=== PATIENT | female | born 1985 ===

== ENCOUNTER 2020-12-11 11:20 | Outpatient (CLI) | payer OTHER ==
[2020-12-11 18:59] LABS: MUDS CUTOFF CONCENTRATIONS CUTOFF CONC BELOW:
[2020-12-11 19:06] LABS: BILIRUBIN,URINE NEGATIVE (NEGATIVE); GLUCOSE, URINE (UA) NEGATIVE (NEGATIVE); KETONES,URINE (UA) NEGATIVE (NEGATIVE); LEUKOCYTE ESTERASE, URINE NEGATIVE (NEGATIVE); NITRITE,URINE NEGATIVE (NEGATIVE); OCCULT BLOOD,URINE NEGATIVE (NEGATIVE); PH,URINE 6.5 PH (5.0-7.5); PROTEIN,URINE NEGATIVE (NEGATIVE); UROBILINOGEN,URINE 0.2 (NORMAL) E.U./dL (NORMAL)
[2020-12-11 19:17] LABS: CLARITY,URINE CLEAR (CLEAR)
[2020-12-11 19:18] LABS: AMPHETAMINE SCREEN,URINE NEGATIVE (NEGATIVE); BARBITURATE SCREEN,UR NEGATIVE (NEGATIVE); BENZODIAZEPINES SCREEN, URINE NEGATIVE (NEGATIVE); COCAINE SCREEN URINE NEGATIVE (NEGATIVE); METHADONE SCREEN, URINE NEGATIVE (NEGATIVE); METHAMPHETAMINES SCREEN, URINE NEGATIVE (NEGATIVE); OPIATE SCREEN, URINE NEGATIVE (NEGATIVE); OXYCODONE SCREEN, URINE NEGATIVE (NEGATIVE); PROPOXYPHENE SCREEN, URINE NEGATIVE (NEGATIVE); THC CANNABINOID SCREEN, URINE NEGATIVE (NEGATIVE); TRICYCLIC ANTIDEPRESSANT,URINE NEGATIVE (NEGATIVE)
[2020-12-11 19:21] LABS: BACTERIA,URINE Rare /HPF (None Seen); RBC,URINE None Seen /HPF (0-5); SQUAMOUS EPITHELIAL CELL,UR RARE Squamous (<= Few); WBC,URINE 0-3 /HPF (0-5)
== END 2020-12-11 23:59 | disposition home or self-care (01) ==
LOC: LAB.R 11:20
PROVIDERS: ATTEND Advanced Practice Midwife
DX: Z34.90 Encounter for supervision of normal pregnancy, unspecified, unspecified trimester (principal)
CPT/HCPCS: 80306; 81001; 87086

== ENCOUNTER 2020-12-22 19:00 | Outpatient (CLI) | payer OTHER ==
--- NOTE | 2020-12-22 20:36 | Ultrasound Report ---
PROCEDURE: OB First Trimester w/TV INDICATIONS: SUPERVISION OF NORMAL OUTSIDE/PRIOR DATING DATA: Last menstrual period (LMP): 10/13/2020. LMP-based estimated date of delivery (CARITO): 07/20/2021. First dating scan (date and location): 12/22/2020. Estimated date of delivery (CARITO) from first dating scan: 07/22/2021. TECHNIQUE: Real-time scanning was performed of the fetus and maternal pelvic organs, with image documentation. Endovaginal scanning was also performed to better visualize the fetus and maternal ovaries. COMPARISON: None FINDINGS: Embryo: Single live area of presumed crown-rump length measuring 2.9 cm corresponding to 9 weeks 5 d ays. heart rate is identified at 181 bpm. Measurement variability in dating: +/- 4 weeks by LMP, +/- 7 days by mean sac diameter (use before 6 weeks gestation if crown-rump length not able to be measured), +/- 5 days by crown-rump length (6-12 weeks gestation). Maternal organs: Ovaries demonstrate a left ovarian cyst measuring 1.4 x 1.8 x 1.6 cm. In addition, a uterine fibroid is identified posteriorly measuring 3.4 x 2.9 x 2.4 cm.. IMPRESSION: 1. Single live intrauterine corresponding to 9 weeks 5 days. 2. Posterior uterine fibroid. 3. Recommend follow-up imaging at 20-22 weeks for dates and anatomy. Reviewed by: Yanet Clay MD on 12/22/2020 8:35 PM PST Approved by: Yanet Clay MD on 12/22/2020 8:35 PM PST Station ID: [id number]
== END 2020-12-22 19:01 | disposition home or self-care (01) ==
LOC: DI 19:00
PROVIDERS: ATTEND Advanced Practice Midwife
DX: O34.11 Maternal care for benign tumor of corpus uteri, first trimester (principal); Z3A.09 9 weeks gestation of pregnancy

== ENCOUNTER 2021-01-24 11:11 | Outpatient (CLI) | payer OTHER ==
[2021-01-24 11:41] LABS: BASOPHILS % (AUTO) 0.3 %; EOSINOPHILS # (AUTO) 0.1 10^3/uL (0.0-0.7); EOSINOPHILS % (AUTO) 1.3 %; HCT - HEMATOCRIT 33.1 % (37.0-47.0); HGB - HEMOGLOBIN 11.4 g/dL (12.0-16.0); LYMPHOCYTES # (AUTO) 1.6 10^3/uL (1.5-3.5); LYMPHOCYTES % (AUTO) 21.9 %; MEAN CORPUSCULAR HEMOGLOBIN 31.1 pg (27.0-31.0); MEAN CORPUSCULAR HGB CONC 34.4 g/dL (32.0-36.0); MEAN CORPUSCULAR VOLUME 90.4 fL (81.0-99.0); MEAN PLATELET VOLUME 9.5 fL (7.9-10.8); MONOCYTES # (AUTO) 0.4 10^3/uL (0.0-1.0); MONOCYTES % (AUTO) 5.7 %; NEUTROPHILS # (AUTO) 5.1 10^3/uL (1.5-6.6); NEUTROPHILS % (AUTO) 70.5 %; PLT - PLATELET COUNT 261 10^3/uL (130-450); RED BLOOD COUNT 3.66 10^6/uL (4.20-5.40); RED CELL DISTRIBUTION WIDTH 12.4 % (12.0-15.0); WHITE BLOOD COUNT 7.2 x10^3/uL (4.8-10.8)
[2021-01-24 11:56] LABS: ALBUMIN 3.5 g/dL (3.2-5.5); ALBUMIN/GLOBULIN RATIO 1.1 (1.0-2.2); BILIRUBIN,TOTAL 0.3 mg/dL (0.2-1.0); CALCIUM 9.1 mg/dL (8.5-10.3); CREATININE 0.4 mg/dL (0.4-1.0); POTASSIUM 3.6 mmol/L (3.5-5.0); TOTAL PROTEIN 6.7 g/dL (6.7-8.2)
[2021-01-25 12:16] LABS: HEPATITIS B SURFACE ANTIGEN NON-REACTIVE (NON-REACTIVE)
[2021-01-25 12:36] LABS: HIV AG/AB 4TH GEN NON-REACTIVE (NON-REACTIVE)
[2021-01-25 13:22] LABS: HEPATITIS C ANTIBODY NON-REACTIVE (NON-REACTIVE)
== END 2021-01-24 11:12 | disposition home or self-care (01) ==
LOC: LAB 11:11
PROVIDERS: ATTEND Nurse Practitioner Obstetrics & Gynecology
DX: O09.529 Supervision of elderly multigravida, unspecified trimester (principal); Z87.59 Personal history of other complications of pregnancy, childbirth and the puerperium; Z36.89 Encounter for other specified antenatal screening
CPT/HCPCS: 36415; 80053; 85025; 85027; 86592; 86762; 86787; 86803; 86850; 86900; 86901; 87340; 87389

== ENCOUNTER 2021-03-02 13:29 | Outpatient (CLI) | payer OTHER ==
--- NOTE | 2021-03-02 17:25 | Ultrasound Report ---
PROCEDURE: OB Detailed Eval INDICATIONS: SUPERVISION OF HIGH RISK OUTSIDE/PRIOR DATING DATA: Last menstrual period (LMP): 10/13/2020. LMP-based estimated date of delivery (CARITO): 07/20/2021. First dating scan (date and location): 12/22/2020. Estimated date of delivery (CARITO) from first dating scan: 07/22/2021. The below data below was generated using the CARITO of 07/22/2021 TECHNIQUE: Real-time scanning was performed of the fetus, with image documentation and biometric measurements. Endovaginal scanning: No COMPARISON: Prior OB ultrasound dated 12/22/2020 FINDINGS: General: A single living intrauterine gestation is present. Presentation: Reached Placenta: Placental position is posterior, without previa. Amniotic fluid index: 14.1 cm, normal for gestational age. heart rate: 130s beats per minute. Maternal cervical canal: 6.1 cm long; normal length is 2.5 cm or more. biometrics: Biparietal diameter: 19 weeks 5 Head circumference: 19 weeks 2 days Abdominal circumference: 20 weeks 1 day Femur length: 19 weeks 4 days Estimated gestational age from initial scan: 19 weeks 5 days Composite gestational age from present scan: 19 weeks 6 days Estimated weight and percentile: 313 g; 50th percentile Measurement variability in biometric dating: +/- 10 days from 12-20 weeks gestation, +/- 2 weeks from 20-30 weeks gestation, +/- 3 weeks at 30 weeks gestation or later. Anatomic survey: Neuro: Ventricles are normal at less than 10 mm. Cisterna magna is normal at 3-11 mm. Cerebellum i s normal in size and morphology. Nuchal skin fold: Normal at less than 6 mm between 14 and 20 weeks gestational age. Face: Nose and lips, facial profile are normal. Spine: No evidence for spina bifida. Heart: 4-chambered heart is present, with normal ventricular outflow tracts. Diaphragm: Diaphragm is intact. Stomach: Left-sided stomach is present. Kidneys: No hydronephrosis. Normal is less than 5 mm in 2nd trimester, less than 7 mm in 3rd trimester. Cord: 3 vessel cord has orthotopic insertion. Bladder: Normal in size. Extremities: All 4 extremities are visualized. IMPRESSION: 1. Single living IUP redemonstrated and interval growth is normal with estimated weight at the 50th percentile for age. 2. Normal anatomic survey. Reviewed by: MP Pearson on 03/02/2021 5:24 PM PDT Approved by: Yanet Clay MD on 03/02/2021 5:24 PM PDT Station ID: [id number]
== END 2021-03-02 13:30 | disposition home or self-care (01) ==
LOC: DI 13:29
PROVIDERS: ATTEND Advanced Practice Midwife
DX: O09.899 Supervision of other high risk pregnancies, unspecified trimester (principal); O09.529 Supervision of elderly multigravida, unspecified trimester; Z3A.19 19 weeks gestation of pregnancy

== ENCOUNTER 2021-05-01 13:17 | Outpatient (CLI) | payer OTHER ==
[2021-05-01 18:41] LABS: HCT - HEMATOCRIT 29.4 % (37.0-47.0); HGB - HEMOGLOBIN 9.7 g/dL (12.0-16.0); MEAN CORPUSCULAR HEMOGLOBIN 31.8 pg (27.0-31.0); MEAN CORPUSCULAR VOLUME 96.4 fL (81.0-99.0); MEAN PLATELET VOLUME 9.5 fL (7.9-10.8); RED BLOOD COUNT 3.05 10^6/uL (4.20-5.40); RED CELL DISTRIBUTION WIDTH 12.5 % (12.0-15.0); WHITE BLOOD COUNT 9.1 x10^3/uL (4.8-10.8)
== END 2021-05-01 23:59 | disposition home or self-care (01) ==
LOC: LAB.WCP 13:17
PROVIDERS: ATTEND Obstetrics & Gynecology
DX: O09.899 Supervision of other high risk pregnancies, unspecified trimester (principal)
CPT/HCPCS: 36415; 82950; 85027

== ENCOUNTER 2021-05-04 07:17 | Outpatient (CLI) | payer OTHER | END 2021-05-04 07:18 | disposition home or self-care (01) | LOC: LAB 07:17 | PROVIDERS: ATTEND Obstetrics & Gynecology | DX: O99.019 Anemia complicating pregnancy, unspecified trimester (principal); O99.810 Abnormal glucose complicating pregnancy; Z53.9 Procedure and treatment not carried out, unspecified reason ==

== ENCOUNTER 2021-05-07 07:08 | Outpatient (CLI) | payer OTHER ==
[2021-05-07 07:47] LABS: GTT GLUCOSE,FASTING 93 mg/dL (70-100)
[2021-05-07 08:09] LABS: % IRON SATURATION 13 % (20-50); IRON 67 ug/dL (28-170); TOTAL IRON BINDING CAPACITY 526 ug/dL (250-450); TRANSFERRIN 376 mg/dL (192-382)
== END 2021-05-07 07:09 | disposition home or self-care (01) ==
LOC: LAB 07:08
PROVIDERS: ATTEND Obstetrics & Gynecology
DX: O99.019 Anemia complicating pregnancy, unspecified trimester (principal); O99.810 Abnormal glucose complicating pregnancy
CPT/HCPCS: 36415; 81599; 82728; 82951; 82952; 83020; 83540; 84466; 85014; 85018; 85041

== ENCOUNTER 2021-06-27 08:00 | Outpatient (CLI) | payer OTHER | END 2021-06-27 23:59 | disposition home or self-care (01) | LOC: LAB.WC 08:00 | PROVIDERS: ATTEND Obstetrics & Gynecology | DX: O09.899 Supervision of other high risk pregnancies, unspecified trimester (principal); Z36.85 Encounter for antenatal screening for Streptococcus B | CPT/HCPCS: 87797 ==

== ENCOUNTER 2021-07-08 15:45 | Inpatient (IN) | payer OTHER ==
[2021-07-08] MEDS ORDERED: ONDANSETRON 4 MG/2 ML VIAL IVP PRN (16:38)
[2021-07-08] MEDS ORDERED: OXYTOCIN/SODIUM CHLORIDE 500 ML IV PRN (16:38)
[2021-07-08] MEDS ORDERED: OXYTOCIN 10 UNIT/ML VIAL IM PRN (16:38)
[2021-07-08] MEDS ORDERED: TERBUTALINE 1 MG/ML VIAL SUBQ PRN (16:38)
[2021-07-08] MEDS ORDERED: NIFEdipine 10 MG CAPSULE PO PRN (16:38)
[2021-07-08] MEDS ORDERED: miSOPROStoL 200 MCG TABLET BC PRN (16:38)
[2021-07-08] MEDS ORDERED: ACETAMINOPHEN 325 MG TABLET PO PRN (16:38)
[2021-07-08] MEDS ORDERED: CARBOPROST TROMETHAMINE 250 MCG/ML AMP IM PRN (16:38)
[2021-07-08] MEDS ORDERED: TRANEXAMIC ACID IN NACL 1,000 MG/100 ML BAG IV PRN (16:38)
[2021-07-08] MEDS ORDERED: METHYLERGONOVINE 0.2 MG/ML VIAL IM PRN (16:38)
[2021-07-08] MEDS ORDERED: LIDOCAINE-MPF 1% 30 ML VIAL ID PRN (16:38)
[2021-07-08] MEDS ORDERED: LABETALOL 20 MG/4 ML SYRINGE IVP PRN ×3 (16:38)
[2021-07-08] MEDS ORDERED: hydrALAZINE INJ 20 MG/ML VIAL IVP PRN ×2 (16:38)
[2021-07-08] MEDS ORDERED: SODIUM CHLORIDE FLUSH 0.9% 10 ML SYRINGE IVP PRN (16:38)
[2021-07-08] MEDS ORDERED: METOCLOPRAMIDE 10 MG/2 ML VIAL IVP PRN (16:38)
[2021-07-08] MEDS ORDERED: fentaNYL 100 MCG/2 ML VIAL IVP PRN (16:38)
--- NOTE | 2021-07-08 16:46 | HISTORY & PHYSICAL EXAMINATION ---
Admit History - Visit Reason Visit Reason: Membranes rupture - : 2 Parity: 1 Risk/History: positive: Other Smoking Status: Never smoker - Mother's Labs Mother's Blood Type: positive: O Mother's RH: positive: Positive GBS: positive: Group B Step Negative Rubella Status: positive: Non-immune, Immune - Other Maternal History Other Maternal History: ID: Patient is a 35 yo at 38+1 wga who presents with spontaneous rupture of membranes. HPI: Patient reports she has some passage of bloody fluid. She is home alone with her 4 year old and called and ambulance. Upon arrival of the ambulance, she started passing large volumes of clear fluid per vagina. She is not yet feeling contractions. Endorses movement. No rowdy VB. GBS negative. Hx of pre-eclampsia in prior . Has had normal blood pressures on ASA this . PNC: LMP: 10/13/2020 CARITO by LMP: 07/20/2021 Initial US: at 9.3wks c/w LMP. (CARITO by U/S 07/22/2021). Left ovarian cyst measuring 1.8cm. Posterior uterine fibroid 3.4cm. FINAL CARITO: 07/20/2021 Vertex by BSUS O pos/Rubella NON-IMMUNE VZV:immune Genetic testing: Quad screen ordered 01/24/2021- not completed by patient. Declines carrier screening. Declines MFM referral for AMA. FAS:WNL Posterior placenta. EFW 313g 50th%ile, 3VC, Normal TRINA. No mention of uterine fibroid from intitial US. follow up for fibroid Glucola ordered- 1HR 167 3HR 93 175, 154, 132. Reviewed limitation of carbohydrates Influenza: declined TDAP- 05/10/2021 Covid vacc: wants to wait until GBS 06/27 Negative HSV: denies in self and partner Breast pump Rx 05/10/21- obtained MOD: Anticipate ; Daugther Leeanna (4), Partner Efrain is active duty; desires unmedicated delivery; (struggled with first) Boy(she guessed it!) No name yet. pp contraception: undecided pap: 01/10/2021. ASCUS, HPV neg PMH: Pre-eclampsia PSH: none SOC HX: Race: or Other Marital status: Occupation: homemaker Education (last grade completed): High school Number of children at home: 1 FOB Information /Father of baby: Efrain FOB occupation [employer] FOB Comments: Depolying December 2020 FH: PGF with DM and HTN ROS: As per HPI, otherwise remaining systems are negative. PE: VS: 121/81 103 100% GEN: NAD HEENT: NCAT CV: RR RESP: normal effort ABD: gravid, S&NT/ND EXT: WWP, no LE edema PSYCH: appropriate affect NEURO: A&O SVE: high and posterior, soft. Patient is unable to tolerate complete exam. head is high and not applied to cervix. Gross rupture of fluid. EFM 140 mod priscila 15x15 accels no decels TOCO: Q6-8, mild Vertex by BSUS A/P: 35 yo at 38+2 wga with gross rupture of membranes SROM/PROM: Gross rupture with intermittent and mild contractions -Concerned regarding high station and ruptured membranes; will start pitocin GLENDA to advance station -Minimize cervical exams as much as possible FWB: Vertex, Cat I tracing, GBS neg, well grown -CEFM PAIN: Desires unmedicated delivery -Ok for epidural per desire -Fentanyl can be given but not in combination with nitrous oxide, not after 7 cm dilation, and not to exceed 200 mcg cumulative dose -Nitrous oxide as desired. Anticipate Physical - Abdominal Exam Vital Signs: Temp Pulse Resp BP Pulse Ox 97.9 F 103 H 17 121/81 H 100 07/08/21 16:28 07/08/21 16:28 07/08/21 16:28 07/08/21 16:28 07/08/21 16:15
[2021-07-08 16:48] LABS: BASOPHILS % (AUTO) 0.3 %; EOSINOPHILS # (AUTO) 0.1 10^3/uL (0.0-0.7); HCT - HEMATOCRIT 33.5 % (37.0-47.0); HGB - HEMOGLOBIN 11.7 g/dL (12.0-16.0); LYMPHOCYTES # (AUTO) 1.4 10^3/uL (1.5-3.5); LYMPHOCYTES % (AUTO) 20.4 %; MEAN CORPUSCULAR HEMOGLOBIN 32.6 pg (27.0-31.0); MEAN CORPUSCULAR HGB CONC 34.9 g/dL (32.0-36.0); MEAN CORPUSCULAR VOLUME 93.3 fL (81.0-99.0); MEAN PLATELET VOLUME 9.6 fL (7.9-10.8); MONOCYTES # (AUTO) 0.6 10^3/uL (0.0-1.0); MONOCYTES % (AUTO) 8.6 %; NEUTROPHILS # (AUTO) 4.7 10^3/uL (1.5-6.6); NEUTROPHILS % (AUTO) 69.1 %; PLT - PLATELET COUNT 241 10^3/uL (130-450); RED BLOOD COUNT 3.59 10^6/uL (4.20-5.40); RED CELL DISTRIBUTION WIDTH 14.4 % (12.0-15.0); WHITE BLOOD COUNT 6.8 x10^3/uL (4.8-10.8)
[2021-07-08] MEDS ORDERED: OXYTOCIN/SODIUM CHLORIDE 500 ML IV SCH (17:00)
[2021-07-08] MEDS ORDERED: SODIUM CHLORIDE FLUSH 0.9% 10 ML SYRINGE IVP SCH (17:00)
[2021-07-08] MEDS: LACTATED RINGERS 1,000 ML IV SCH (17:05)
--- NOTE | 2021-07-08 22:50 | PROVIDER PROGRESS NOTE ---
Subjective - Prog Note Date Prog Note Date: 07/08/21 Prog Note Time: 22:41 - Subjective Subjective: Called in by request of RN to determine position. Patient had additional gush of fluid and SVE was performed Cervix remained unreachable without clear presenting part to examining RN Concern for transverse position Pitocin had been at 4 mU/min and was stopped after SVE BSUS shows vertex presentation EFM 135 mod priscila 15x15 accels no decels TOCO: Q 5-6 min cat I tracing Vertex presentation Continued passage of clear fluid Restart pitocin at 2 mU/min Objective - Vital Signs/Intake & Output Vital Signs: Vital Signs x48h Temp Pulse Pulse Resp BP BP Pulse Ox 07/08/21 16:28 97.9 F 103 H 17 121/81 H 07/08/21 16:15 97.9 F 103 H 103 H 17 121/81 H 121/81 H 100 - Lab Results Fish Bones: 07/08/21 16:15 Other Labs: Lab Results x24hrs 07/08/21 07/08/21 Range/Units 16:15 16:15 WBC 6.8 (4.8-10.8) x10^3/uL RBC 3.59 L (4.20-5.40) 10^6/uL Hgb 11.7 L (12.0-16.0) g/dL Hct 33.5 L (37.0-47.0) % MCV 93.3 (81.0-99.0) fL MCH 32.6 H (27.0-31.0) pg MCHC 34.9 (32.0-36.0) g/dL RDW 14.4 (12.0-15.0) % Plt Count 241 (130-450) 10^3/uL MPV 9.6 (7.9-10.8) fL Neut # (Auto) 4.7 (1.5-6.6) 10^3/uL Lymph # (Auto) 1.4 L (1.5-3.5) 10^3/uL [place] # (Auto) 0.6 (0.0-1.0) 10^3/uL Eos # (Auto) 0.1 (0.0-0.7) 10^3/uL Baso # (Auto) 0.0 (0.0-0.1) 10^3/uL Absolute Nucleated RBC 0.00 x10^3/uL Nucleated RBC % 0.0 /100WBC Blood Type O POSITIVE Antibody Screen NEGATIVE
[2021-07-09] MEDS: LACTATED RINGERS 1,000 ML IV SCH (05:35)
--- NOTE | 2021-07-09 07:43 | PROVIDER PROGRESS NOTE ---
Subjective - Prog Note Date Prog Note Date: 07/09/21 Prog Note Time: 07:35 - Subjective Subjective: Patient was checked at 5:30 am by RN, reported to be 5 cm -Given fentanyl for pain management -Had been having decels with contractions, resolved once position in bed. Mod priscila between contractions Decelerations deepened with ctx at about 6:30 Mother given IVF bolus No significant change in SVE depsite patient reporting urge to defecate IUPC was placed and amnioinfusion was started at 250 cc bolus with 125 cc/hr infusion Pitocin had been a 7 mU/min. Pitocin was discontinued. EFM 135 mod priscila no accels, decels with ctx TOCO: Q5 min, not adequate as measured by IUPC Discussed unusual labor course and Cat II tracing remote from delivery. Will allow period of rest from pitocin for EFM recovery Have informed OR of high concern for delivery Will need to contact [facility] for care of 4 yo child in event of C- section Objective - Vital Signs/Intake & Output Intake & Output: Intake & Output 07/06/21 07/07/21 07/08/21 07/09/21 23:59 23:59 23:59 23:59 Intake Total 1000 Balance 1000 - Lab Results Fish Bones: 07/08/21 16:15 Other Labs: Lab Results x24hrs 07/08/21 07/08/21 Range/Units 16:15 16:15 WBC 6.8 (4.8-10.8) x10^3/uL RBC 3.59 L (4.20-5.40) 10^6/uL Hgb 11.7 L (12.0-16.0) g/dL Hct 33.5 L (37.0-47.0) % MCV 93.3 (81.0-99.0) fL MCH 32.6 H (27.0-31.0) pg MCHC 34.9 (32.0-36.0) g/dL RDW 14.4 (12.0-15.0) % Plt Count 241 (130-450) 10^3/uL MPV 9.6 (7.9-10.8) fL Neut # (Auto) 4.7 (1.5-6.6) 10^3/uL Lymph # (Auto) 1.4 L (1.5-3.5) 10^3/uL [place] # (Auto) 0.6 (0.0-1.0) 10^3/uL Eos # (Auto) 0.1 (0.0-0.7) 10^3/uL Baso # (Auto) 0.0 (0.0-0.1) 10^3/uL Absolute Nucleated RBC 0.00 x10^3/uL Nucleated RBC % 0.0 /100WBC Blood Type O POSITIVE Antibody Screen NEGATIVE
[2021-07-09] MEDS ORDERED: SIMETHICONE CHEW 80 MG TABLET PO PRN (11:01)
[2021-07-09] MEDS ORDERED: HYDROCORTISONE 1% CREAM 28 GM TUBE PR PRN (11:01)
[2021-07-09] MEDS ORDERED: ACETAMINOPHEN 500 MG TABLET PO PRN (11:01)
[2021-07-09] MEDS ORDERED: ONDANSETRON ODT 4 MG TABLET TL PRN (11:01)
[2021-07-09] MEDS ORDERED: IBUPROFEN 600 MG TABLET PO PRN (11:01)
--- NOTE | 2021-07-09 11:05 | DELIVERY NOTE ---
Delivery Note - Labor Labor: positive: Augmented by oxytocin - Delivery Method Delivery Method: positive: Spontaneous vaginal delivery, Vacuum assist - Presentation Presentation: positive: Vertex - Nuchal Cord Nuchal Cord: positive: Present, Reduced - Anesthetic Anesthetic Type: - Amniotic Fluid Description Amniotic Fluid Description: positive: Clear - Vacuum Use Indication for Vacuum Use: positive: Shortening of 2nd stage for maternal benefit, Suspicion of immediate or potential compromise Type of Vacuum Cup: positive: Cup: Rigid Vacuum Extraction: positive: Successful Number of pop-offs: 3 - Episiotomy Type Episiotomy Type: positive: None - Laceration Laceration: positive: 2nd degree, Perineal - Suture Suture Type: positive: Vicryl Suture Size: positive: 3-0 - Delivery Outcome Delivery Outcome: positive: Livebirth - : positive: Placed in direct skin contact with mother, Suctioned, Bulb syringe, Stimulated, Warmed, [place] used [place] sex: positive: Male - Cord Cord: positive: 3 vessels - Placenta Placenta: positive: Intact, Expressed - Estimated Blood Loss Estimated Blood Loss (in cc): 200 - Post Delivery Events Post Delivery Events: positive: No post delivery events - Delivery Comments (Free Text/Narrative) Delivery Comments (Free Text/Narrative): STAGE I: Patient is a 35 yo who presented at 38+1 wga with spontaneous rupture of membranes. Patient reports she has some passage of bloody fluid. She is home alone with her 4 year old and called and ambulance. Upon arrival of the ambulance, she started passing large volumes of clear fluid per vagina. No contractions at admit. Endorsed movement. No rowdy VB. GBS negative. Hx of pre-eclampsia in prior . Has had normal blood pressures on ASA this . Initial SVE was difficult to assess due to high position of station and presence of the cervix posterior to the fetus without a palpable presenting part. bedside ultrasound was performed and position was confirmed to be vertex. She was started on pitocin for augmentation. Max dose was 7 mU/min. Had one dose of fentanyl for pain management. Declined epidural. GBS negative, antibiotic prophylaxis was not indicated. Category I tracing through most of Stage I labor. At approximately 6:30 and, tracing showed runs of recurrent decels coordinated with contractions IUPC was placed and amnioinfusion was initiated. A retractable anterior lip was noted at 7:53 on 07/09/21 and patient started pushing at that time. STAGE II: Patient pushed well for 46 minutes. Tracing showed deep recurrent decelerations with contractions. consent was obtained at 8:08. She was offered an attempt at vacuum assisted delivery vs . OR was opened in anticipation of . Pediatrics was present at bedside at 8;13. Bladder was drained of 300 cc of urine via in and out catheterization. Kiwi rigid cup vacuum was placed and infant was pulled to the introitus with 3 pop-offs. Mother then continued to push without vacuum assistance. was delivered from PARTH presentation at 8:39 am, with mild rotational maneuvers to facilitate delivery of the anterior arm. Delay between delivery of head and completion of delivery was 50 seconds. Apgars were 7/8. BW 3.035 kg. Cord gases were collected but were not sent. STAGE III: Placenta delivered with manual expression at 8;46 am. It was examined and found to be intact. Inspection of the perineum showed a small midline 2nd degree laceration repaired with 3-0 Vicryl in the usual sterile fashion in layers. Procedure was well tolerated and without complication.
[2021-07-09] MEDS ORDERED: LACTATED RINGERS 1,000 ML IV SCH (12:00)
[2021-07-09] MEDS: DOCUSATE SODIUM 100 MG CAPSULE PO PRN (12:36)
[2021-07-10] MEDS: DOCUSATE SODIUM 100 MG CAPSULE PO PRN (08:06)
[2021-07-10 08:50] VITALS: BP 115/66
--- NOTE | 2021-07-10 12:07 | Discharge Plan ---
Discharge Plan Problem Reviewed?: Yes Disposition: Home, Self Care Condition: Good Diet: Regular Activity Restrictions: Additional Comments Weight Bearing: (Nothing in the vagina for 6 weeks: No intercourse, tampons, d ouching Call for: -Fever greater than 100.5 -Pain that does not improve with pain medication -Heavy bleeding in which you are soaking a pad an hour for 2 hours in a row No tub baths or hot tubs for 4 weeks) Health Concerns: Ibuprofen 600 mg by mouth every 6 hours as needed for pain Acetaminophen 500-1000 mg by mouth every 8 hours as needed for pain Docusate 100-200 mg by mouth twice a day as needed for constipation No Smoking: If you smoke, Please STOP! Call for help. Follow-up with: Komal Amos MD [Provider Admit Priv/Credential] -
--- NOTE | 2021-07-10 12:10 | Discharge Plan ---
Discharge Plan Problem Reviewed?: Yes Disposition: 01 Home, Self Care Activity Restrictions: Additional Comments (Nothing in the vagina for 6 weeks: No intercourse, tampons, douching Call for: -Fever greater than 100.5 - Pain that does not improve with pain medication -Heavy bleeding in which you are soaking a pad an hour for 2 hours in a row No tub baths or hot tubs for 4 weeks) Additional Instructions or Follow Up instructions: Ibuprofen 600 mg by mouth every 6 hours as needed for pain Acetaminophen 500-1000 mg by mouth every 8 hours as needed for pain Docusate 100-200 mg by mouth twice a day as needed for constipation No Smoking: If you smoke, Please STOP! Call for help.
--- NOTE | 2021-07-12 14:29 | DISCHARGE SUMMARY ---
"Discharge Summary Admit Date: 07/08/21 Discharge Date: 07/10/21 Discharging Provider: Dandre Condition at Discharge: Good Discharge Disposition: 01 Home, Self Care - DIAGNOSES Admission Diagnoses: IUP at 38+1 wga Spontaneous rupture of membranes Discharge Diagnoses with Status of Each Condition: Same and delivery of term gestation via vacuum assisted vaginal delivery. - HPI History of Present Illness: Patient is a 35 yo who presented at 38+1 wga with spontaneous rupture of membranes. Patient reported she has some passage of bloody fluid. She was home alone with her 4 year old and called and ambulance. Upon arrival of the ambulance, she started passing large volumes of clear fluid per vagina. She was not yet feeling contractions at presentation. Endorsed movement. No rowdy VB. GBS negative. Hx of pre-eclampsia in prior . Has had normal blood pressures on ASA this . PNC: LMP: 10/13/2020 CARITO by LMP: 07/20/2021 Initial US: at 9.3wks c/w LMP. (CARITO by U/S 07/22/2021). Left ovarian cyst measuring 1.8cm. Posterior uterine fibroid 3.4cm. FINAL CARITO: 07/20/2021 Vertex by BSUS O pos/Rubella NON-IMMUNE VZV:immune Genetic testing: Quad screen ordered 01/24/2021- not completed by patient. Declines carrier screening. Declines MFM referral for AMA. FAS:WNL Posterior placenta. EFW 313g 50th%ile, 3VC, Normal TRINA. No mention of uterine fibroid from intitial US. follow up for fibroid Glucola ordered- 1HR 167 3HR 93 175, 154, 132. Reviewed limitation of carbohydrates Influenza: declined TDAP- 05/10/2021 Covid vacc: wants to wait until GBS /15 Negative HSV: denies in self and partner Breast pump Rx 05/10/21- obtained MOD: Anticipate ; Daughter Leeanna (4), Partner Efrain is active duty; desires unmedicated delivery; (struggled with first) Boy(she guessed it!) No name yet. pp contraception: undecided pap: 01/10/2021. ASCUS, HPV neg - CONSULTS | PROCEDURES Procedures: Vacuum assisted vaginal delivery - HOSPITAL COURSE Hospital Course: STAGE I: Patient is a 35 yo who presented at 38+1 wga with spontaneous rupture of membranes. Patient reports she has some passage of bloody fluid. She is home alone with her 4 year old and called and ambulance. Upon arrival of the ambulance, she started passing large volumes of clear fluid per vagina. No contractions at admit. Endorsed movement. No rowdy VB. GBS negative. Hx of pre-eclampsia in prior . Has had normal blood pressures on ASA this . Initial SVE was difficult to assess due to high position of station and presence of the cervix posterior to the fetus without a palpable presenting part. bedside ultrasound was performed and position was confirmed to be vertex. She was started on pitocin for augmentation. Max dose was 7 mU/min. Had one dose of fentanyl for pain management. Declined epidural. GBS negative, antibiotic prophylaxis was not indicated. Category I tracing through most of Stage I labor. At approximately 6:30 and, tracing showed runs of recurrent decels coordinated with contractions IUPC was placed and amnioinfusion was initiated. A retractable anterior lip was noted at 7:53 on 07/09/21 and patient started pushing at that time. STAGE II: Patient pushed well for 46 minutes. Tracing showed deep recurrent decelerations with contractions. consent was obtained at 8:08. She was offered an attempt at vacuum assisted delivery vs . OR was opened in anticipation of . Pediatrics was present at bedside at 8;13. Bladder was drained of 300 cc of urine via in and out catheterization. Kiwi rigid cup vacuum was placed and infant was pulled to the introitus with 3 pop-offs. Mother then continued to push without vacuum assistance. Infant was delivered from PARTH presentation at 8:39 am, with mild rotational maneuvers to facilitate delivery of the anterior arm. Delay between delivery of head and completion of delivery was 50 seconds. Apgars were 7/8. BW 3.035 kg. Cord gases were collected but were not sent. STAGE III: Placenta delivered with manual expression at 8;46 am. It was examined and found to be intact. Inspection of the perineum showed a small midline 2nd degree laceration repaired with 3-0 Vicryl in the usual sterile fashion in layers. Procedure was well tolerated and without complication. By PPD#1, patient was meeting goals for discharge. Routine discharge instructions were given. - ALLERGIES Allergies/Adverse Reactions: Allergies Allergy/AdvReac Type Severity Reaction Status Date / Time No Known Drug Allergies Allergy Verified 07/09/21 05:42 - MEDICATIONS Home Medications: Ambulatory Orders Medication Instructions Recorded Confirmed Acetaminophen [Acetaminophen Extra 1,000 mg PO Q8H PRN #60 tablet 07/10/21 Strength] Docusate Sodium 100Mg Capsule 100 - 200 mg PO BID PRN #60 cap 07/10/21 [Colace 100Mg Capsule] Ibuprofen [Motrin] 600 mg PO Q6H PRN #60 tab 07/10/21 - PHYSICAL EXAM AT DISCHARGE General Appearance: positive: No acute distress Neck: positive: Nml inspection Respiratory: positive: No respiratory distress, Breath sounds nml Cardiovascular: positive: Regular rate & rhythm Abdomen: positive: Non-tender, No distention, Other (FF below umbi) Skin: positive: Color nml Extremities: positive: Non-tender, No pedal edema Neurologic/Psychiatric: positive: Oriented x3 - LABS Result Diagrams: 07/08/21 16:15 - SEPSIS Sepsis Criteria: Renal: urine output less than 0.5ml/kg/hr for 2 hours or creatinine gr - FOLLOW UP Follow Up: [address] Amos - TIME SPENT Time Spent in Discharge (Minutes): 30"
== END 2021-07-10 13:45 | disposition home or self-care (01) | DRG 807 ==
LOC: WFO 15:45 → FBP 15:46 → WFO 16:37 → FBP 16:38
PROVIDERS: ADMIT Obstetrics & Gynecology; ATTEND Obstetrics & Gynecology
PROC: 10D07Z6 Extraction of Products of Conception, Vacuum, Via Natural or Artificial Opening (ICD-10-PCS; principal; 2021-07-09)
PROC: 0KQM0ZZ Repair Perineum Muscle, Open Approach (ICD-10-PCS; 2021-07-09)
PROC: 10H07YZ Insertion of Other Device into Products of Conception, Via Natural or Artificial Opening (ICD-10-PCS; 2021-07-09)
DX: O42.02 Full-term premature rupture of membranes, onset of labor within 24 hours of rupture (principal); Z37.0 Single live birth; O76 Abnormality in fetal heart rate and rhythm complicating labor and delivery; O69.81X0 Labor and delivery complicated by cord around neck, without compression, not applicable or unspecified; O70.1 Second degree perineal laceration during delivery; Z3A.38 38 weeks gestation of pregnancy
CPT/HCPCS: 36415; 85025; 86850; 86900; 86901; 99214; A9270; J2210; J7120